=== PATIENT | female | born 1990 | race American Indian/Alaskan Native ===

== ENCOUNTER 2018-10-04 17:54 | Emergency (ER) | payer OTHER ==
[~2018-10-04] VITALS: Ht 162.6 cm; Wt 96.0 kg
[2018-10-04 18:23] VITALS: BP 123/69
[2018-10-04] MEDS ORDERED: AMOX-422 PO (20:14)
[2018-10-04] MEDS ORDERED: amox tr/potassium clavulanate 875/125mg TAB PO ONE (20:15)
[2018-10-04] MEDS ORDERED: ondansetron 4mg rapidly disintigrating tab PO ONE (20:15)
== END 2018-10-04 20:25 | disposition home or self-care (01) ==
LOC: ER 17:55
DX: S00.83XA Contusion of other part of head, initial encounter (principal); Z79.2 Long term (current) use of antibiotics; W50.3XXA Accidental bite by another person, initial encounter; Y93.89 Activity, other specified; Y92.89 Other specified places as the place of occurrence of the external cause; Y99.8 Other external cause status
CPT/HCPCS: 99283